=== PATIENT | female | born 1955 | race Caucasian/White ===

== ENCOUNTER 2021-01-31 06:17 | Day surgery (SDC) | payer OTHER ==
[2021-01-22 15:32] VITALS: BMI 27.4
[2021-01-31] MEDS ORDERED: LIDOCAINE HCL 2% (20ML MULTI-DOSE VIAL) ONE (07:21)
[2021-01-31] MEDS ORDERED: MIDAZOLAM HCL 2 MG/2 ML SINGLE DOSE VIAL ONE ×2 (07:31→07:42)
[2021-01-31] MEDS ORDERED: PROPOFOL 20 ML ONE (07:42)
[2021-01-31 09:16] VITALS: BP 103/63; PULSE 63; TEMP 97.8
== END 2021-01-31 09:10 | disposition home or self-care (01) ==
LOC: FASU 06:17
PROVIDERS: ATTEND Orthopaedic Surgery Hand Surgery
PROC: 01N50ZZ Release Median Nerve, Open Approach (ICD-10-PCS; principal; 2021-01-31 08:01)
DX: G56.02 Carpal tunnel syndrome, left upper limb (principal)

== ENCOUNTER 2021-03-28 06:02 | Day surgery (SDC) | payer OTHER ==
[2021-03-23 11:06] VITALS: BMI 25.7
[2021-03-28] MEDS ORDERED: LOCK ITEM NR ONE (06:41)
[2021-03-28] MEDS ORDERED: SUCCINYLCHOLINE CHLORIDE 200 MG/10 ML SYRINGE ONE (07:09)
[2021-03-28] MEDS ORDERED: PROPOFOL 20 ML ONE ×2 (07:09)
[2021-03-28] MEDS ORDERED: MIDAZOLAM HCL 2 MG/2 ML SINGLE DOSE VIAL ONE (07:09)
[2021-03-28] MEDS ORDERED: KETOROLAC TROMETHAMINE 30 MG/1 ML VIAL ONE (07:10)
[2021-03-28] MEDS ORDERED: ONDANSETRON 4 MG/2 ML VIAL ONE (07:10)
[2021-03-28] MEDS ORDERED: DEXAMETHASONE SOD PHOSPHATE 4 MG/1 ML VIAL ONE (07:10)
[2021-03-28] MEDS ORDERED: ceFAZolin SODIUM 1 GM VIAL ONE (07:10)
[2021-03-28] MEDS ORDERED: SCOPOLAMINE HYDROBROMIDE 1 PATCH PATCH.TD72 ONE (07:16)
[2021-03-28] MEDS ORDERED: LIDOCAINE HCL 2% (20ML MULTI-DOSE VIAL) ONE (07:20)
[2021-03-28] MEDS ORDERED: oxyCODONE HCL 5 MG TABLET PO PRN ×2 (08:18)
[2021-03-28] MEDS ORDERED: ONDANSETRON 4 MG/2 ML VIAL IVPUSH PRN (08:18)
[2021-03-28] MEDS ORDERED: LACTATED RINGERS SOLUTION 1,000 ML IV SCH (08:30)
[2021-03-28 08:59] VITALS: BP 105/69; PULSE 84; TEMP 98
== END 2021-03-28 09:00 | disposition home or self-care (01) ==
LOC: FASU 06:02
PROVIDERS: ATTEND Orthopaedic Surgery Hand Surgery
PROC: 01N50ZZ Release Median Nerve, Open Approach (ICD-10-PCS; principal; 2021-03-28 08:00)
PROC: 0LN70ZZ Release Right Hand Tendon, Open Approach (ICD-10-PCS; 2021-03-28 08:00)
DX: G56.01 Carpal tunnel syndrome, right upper limb (principal); M65.321 Trigger finger, right index finger

== ENCOUNTER 2021-06-14 18:31 | Emergency (ER) | payer OTHER ==
[2021-06-14 18:43] VITALS: BP 141/77; PULSE 87; TEMP 97.7; BMI 25.7
[2021-06-14] MEDS ORDERED: ACETAMINOPHEN 325 MG TABLET (FP) PO ONE (19:32)
[2021-06-14] MEDS ORDERED: ACETAMINOPHEN 500 MG TABLET (FP) ONE (19:34)
== END 2021-06-14 19:39 | disposition home or self-care (01) ==
LOC: FER 18:31
DX: R11.0 Nausea (principal); W19.XXXA Unspecified fall, initial encounter
CPT/HCPCS: 99283-25

== ENCOUNTER 2022-09-10 19:11 | Emergency (ER) | payer OTHER ==
[2022-09-10 19:22] VITALS: BP 118/74; RESP 17; TEMP 98; BMI 26.6
[2022-09-10] MEDS ORDERED: ACETAMINOPHEN 500 MG TABLET (FP) PO ONE (19:30)
[2022-09-10] MEDS ORDERED: ACETAMINOPHEN 500 MG TABLET (FP) ONE (19:32)
[2022-09-10 19:44] VITALS: PULSE 86
[2022-09-10 19:51] LABS: EPITHELIAL CELLS RARE /hpf
== END 2022-09-10 19:47 | disposition home or self-care (01) ==
LOC: FER 19:11
DX: R50.82 Postprocedural fever (principal)
CPT/HCPCS: 81003; 81015; 87086; 99283-25

== ENCOUNTER 2023-02-24 19:43 | Emergency (ER) | payer OTHER ==
[2023-02-24 19:54] VITALS: BP 135/77; PULSE 79; RESP 16; TEMP 97.6; BMI 27.1
[2023-02-24] MEDS ORDERED: PHENAZOPYRIDINE HCL 100 MG TABLET (FP) PO ONE (19:58)
[2023-02-24] MEDS ORDERED: PHENAZOPYRIDINE HCL 100 MG TABLET (FP) ONE (19:59)
[2023-02-24 20:14] LABS: EPITHELIAL CELLS FEW /hpf; URINE MUCUS RARE
== END 2023-02-24 20:21 | disposition home or self-care (01) ==
LOC: FER 19:43
DX: N39.0 Urinary tract infection, site not specified (principal); R30.0 Dysuria; R35.0 Frequency of micturition; R39.15 Urgency of urination
CPT/HCPCS: 81003; 81015; 87086; 99283-25

== ENCOUNTER 2025-02-09 23:43 | Emergency (ER) | payer OTHER ==
[2025-02-09 23:56] VITALS: BP 119/77; PULSE 82; RESP 16; TEMP 97.3; BMI 27.4
[2025-02-10] MEDS ORDERED: MAGNESIUM CITRATE 300 ML BOTTLE ONE (00:15)
[2025-02-10] MEDS: MAGNESIUM CITRATE 300 ML BOTTLE PO ONE (00:24)
== END 2025-02-10 00:49 | disposition home or self-care (01) ==
LOC: FER 23:43
DX: K59.09 Other constipation (principal)
CPT/HCPCS: 99283-25